=== PATIENT | female | born 2000 | race Caucasian/White ===

== ENCOUNTER 2019-01-05 21:00 | Emergency (ER) | payer BC ==
[2019-01-05 21:05] VITALS: BP 114/52
--- NOTE | 2019-01-05 21:35 | EDPHY ---
H & P Time Seen by Provider: 01/05/19 21:34 HPI/ROS: Chief complaint: Right ankle injury History of present illness: This is a 18-year-old female who presents to the emergency department for a right ankle injury. Patient reports prior to arrival she misstepped and twisted her ankle. Since then she has had pain to the outer aspect of the ankle. No open wounds. No abnormal coolness or paresthesias. No other injuries reported. She is having some difficulty walking but can still walk. Smoking Status: Never smoked Physical Exam: General: Alert, nontoxic. Skin: No abnormal lesions to the right lower extremity. Musculoskeletal: Tenderness to the lateral malleolus and just anterior to the lateral malleolus. The rest of the ankle including over the Achilles is unremarkable as is the foot and knee. Vascular: DP and PT pulses 2+. Neurologic: Sensation intact throughout the right lower extremity. Constitutional: Initial Vital Signs Temperature (C) 36.6 C 01/05/19 21:02 Heart Rate 71 01/05/19 21:02 Respiratory Rate 16 01/05/19 21:02 Blood Pressure 114/52 L 01/05/19 21:02 O2 Sat (%) 99 01/05/19 21:02 O2 Delivery Mode Room Air Allergies/Adverse Reactions: No Known Allergies Allergy (Unverified 01/05/19 21:04) Home Medications: Medication Instructions Recorded NK [No Known Home Meds] 01/05/19 MDM/Departure - MDM Imaging Results: Imaging Impressions Ankle X-Ray 01/05/19 21:06 Impression: Negative. No acute fracture. Imaging: I viewed and interpreted images myself Procedures: Procedure: Splint placement. A Velcro stirrup splint was applied. After application of the splint I returned and re-examined the patient. The splint was adequately immobilizing the joint and distal to the splint the patient's circulation and sensation was intact. Patient was given crutches. ED Course/Re-evaluation: Patient seen under the supervision of my secondary supervising physician Dr. Reji Burnett. Patient presents for a right ankle injury. The foot is neurovascularly intact. X-rays negative. Likely sprain/strain. Velcro splint and crutches given. Home care is discussed. She is to follow up with primary care doctor for recheck. Return precautions are given. Patient voiced understanding and agreement with plan. Differential Diagnosis: Included but not limited to sprain, strain, bony fracture - Depart Disposition: Home, Routine, Self-Care Clinical Impression: Ankle sprain Qualifiers: Encounter type: initial encounter Involved ligament of ankle: unspecified ligament Laterality: right Qualified Code(s): S93.401A - Sprain of unspecified ligament of right ankle, initial encounter Condition: Good Instructions: Ankle Sprain (ED) Additional Instructions: Follow-up with a primary care doctor for continued evaluation and care Use ibuprofen or Tylenol as directed as needed for pain Ice the injury, 20 min on, 3 times daily for the next 3 days If symptoms worsen or new symptoms develop return to the emergency room for recheck Referrals: [facility],. [Clinic] - As per Instructions
== END 2019-01-05 22:00 | disposition home or self-care (01) ==
DX: S93.401A Sprain of unspecified ligament of right ankle, initial encounter (principal); W18.42XA Slipping, tripping and stumbling without falling due to stepping into hole or opening, initial encounter

== ENCOUNTER 2019-04-23 13:02 | Emergency (ER) | payer BC ==
[2019-04-23 13:08] VITALS: BP 116/93
--- NOTE | 2019-04-23 13:26 | EDPHY ---
H & P Stated Complaint: foreign body?glass marble stuck in vagina Time Seen by Provider: 04/23/19 13:22 HPI/ROS: CHIEF COMPLAINT: Vaginal foreign body HISTORY OF PRESENT ILLNESS: This is a healthy 19-year-old female who presents with vaginal foreign body that she has been unable to digitally remove. Foreign body is a large marble. She is not having vaginal or abdominal pain. She has not had fever. No discharge. No history of STD. REVIEW OF SYSTEMS: A ten system review of systems was performed and is negative with the exception of the items mentioned in the HPI. Past medical history: Negative Past surgical history: Negative Social history: She is in [employer] at [facility]. No tobacco use. General Appearance: Alert. Vital signs reviewed. Respiratory: Lungs are clear to auscultation; no wheezes, rales, or rhonchi. Cardiovascular: Regular rate and rhythm; no murmur, rub, or gallop. Gastrointestinal: Abdomen is soft and nontender, no masses or organomegaly, bowel sounds normal. Skin: Warm and dry, no rashes on exposed skin, normal color. Extremities: No lower extremity edema, no calf tenderness or swelling. Neurological: Alert and oriented. Moving all four extremities easily and equally. Pelvic: [place], smaller than a golf ball, in the vaginal vault wedged against the cervix. This was easily removed using ring forceps. No cervical motion tenderness. No bleeding. No discharge. Psychiatric: Normal affect. - Personal History LMP (Females 10-55): 22-28 Days Ago Current Tetanus Diphtheria and Acellular Pertussis (TDAP): Yes - Medical/Surgical History Hx Asthma: No Hx Chronic Respiratory Disease: No Hx Diabetes: No Hx Cardiac Disease: No Hx Renal Disease: No Hx Cirrhosis: No Hx Alcoholism: No Hx HIV/AIDS: No Hx Splenectomy or Spleen Trauma: No Other PMH: denies - Social History Smoking Status: Current some day smoker Constitutional: Initial Vital Signs Temperature (C) 36.8 C 04/23/19 13:06 Heart Rate 85 04/23/19 13:06 Respiratory Rate 18 04/23/19 13:06 Blood Pressure 116/93 H 04/23/19 13:06 O2 Sat (%) 99 04/23/19 13:06 O2 Delivery Mode Room Air Allergies/Adverse Reactions: No Known Allergies Allergy (Verified 04/23/19 13:06) Home Medications: Medication Instructions Recorded NK [No Known Home Meds] 01/05/19 Medical Decision Making ED Course/Re-evaluation: Vaginal foreign body removed with ring forceps. No evidence of injury as result of this foreign body. I do not suspect infection. Safe sex practices reviewed. Departure - Departure Disposition: Home, Routine, Self-Care Clinical Impression: Retained vaginal foreign body Qualifiers: Encounter type: initial encounter Qualified Code(s): T19.2XXA - Foreign body in vulva and vagina, initial encounter Condition: Good Instructions: Vaginal Foreign Body (ED) Additional Instructions: I am referring about Student Health and to a local risk control director, should you need one. Referrals: [facility] [Clinic] - As per Instructions Verona Kearney DO [Doctor of Osteopathy] - As per Instructions
== END 2019-04-23 14:00 | disposition home or self-care (01) ==
LOC: EEVIPCON 13:02
DX: T19.2XXA Foreign body in vulva and vagina, initial encounter (principal)